=== PATIENT | female | born 1975 | race Caucasian/White ===

== ENCOUNTER 2021-06-19 14:12 | Emergency (ER) | payer BC, SELFPAY ==
[2021-06-19 14:28] VITALS: BP 155/98; PULSE 78; RESP 18; TEMP 36.8; O2SAT 99
--- NOTE | 2021-06-19 14:42 | ED.URI ---
HPI - URI/Sore Throat General Chief Complaint: Upper Respiratory Infection Stated Complaint: runny nose,cough,neck pain Time Seen by Provider: 06/19/21 14:46 Source: patient, RN notes reviewed and old records reviewed Mode of arrival: ambulatory Limitations: no limitations History of Present Illness HPI Narrative: 46 year old female presents to [facility] care with 2 week history of nasal drainage, cough, sore throat,swollen glands in her neck which has not resolved with use of fiorella seltzer cold med and Mucinex. Patient denies any fevers, chills or sweats, denies any body aches. Patient reports that she has had some sinus congestion and drainage, cough,sore throat and also some swollen glands in her neck. Patient reports that she has taken a home COVID test which was negative. Patient denies any shortness of breath or any wheezing. MD elicited complaint: cough, sore throat, rhinorrhea and nasal congestion Pertinent past history: seasonal allergies Onset (ago): week(s) (2) Consistency: constant Related Data Home Medications Medication Instructions Recorded Confirmed levonorgestrel-ethinyl estrad 1 tablet PO DAILY 06/19/21 06/19/21 [Lutera (28)] Allergies Allergy/AdvReac Type Severity Reaction Status Date / Time codeine Allergy Unknown Dizziness Verified 06/19/21 14:37 Review of Systems Review of Systems: CONSTITUTIONAL: Denies fever, chills, or sweats. EYES: Denies visual changes, redness, or discharge. ENT: Positive rhinorrhea, congestion, sore throat, no otalgia. CARDIOVASCULAR: Denies chest pain, palpitations, or edema. RESPIRATORY: Positive cough denies dyspnea. GASTROINTESTINAL: Denies abdominal pain, nausea, vomiting, or diarrhea. GENITOURINARY: Denies dysuria or hematuria. SKIN: Denies rash or itching. MUSCULOSKELETAL: Denies back pain, joint pain, or myalgia. NEUROLOGIC: Denies headache, numbness, or weakness. PSYCHIATRIC: Denies anxiety or depression. All systems reviewed & are unremarkable except as noted in HPI and below PMFSH Past Medical History Medical History (Updated 06/19/21 @ 15:42 by Roberta Sharp NP) Multiple sclerosis Seasonal allergies Surgical History Surgical History (Updated 06/19/21 @ 14:50 by Roberta Sharp NP) [place] teeth extracted Family History Family History Father Patient's father is in good health Sibling Patient's brother is in good health Mother Hypertension Family history of type 2 diabetes mellitus Social History Social History Smoking status: Never smoker Alcohol intake: current Exam Narrative: GENERAL: Well-appearing, well-nourished, and in no acute distress. HEAD: Normocephalic, atraumatic. EYES: PERRLA and EOMI. ENT: Nares with mild redness, clear rhinorrhea no epistaxis. Mucous membranes moist.TM's normal with good light reflex, throat with some redness no lesions or exudates or tonsil swelling, NECK: Supple. no lymphadenopathy noted CHEST: Clear to auscultation. No respiratory distress.SAO2 99% on room air HEART: Regular rate and rhythm. No murmur heard. Normal peripheral pulses. ABDOMEN: Soft, nontender, nondistended, normal active bowel sounds. EXTREMITIES: Normal range of motion. No edema. SKIN: Warm, dry, no rash. NEURO: No focal deficits. Alert and oriented x3. Course Course Level of Care: Express Care Visit Vital Signs Vital signs: Vital Signs Temperature 36.8 C 06/19/21 14:28 Pulse Rate 78 06/19/21 14:28 Respiratory Rate 18 06/19/21 14:28 Blood Pressure 155/98 H 06/19/21 14:28 Pulse Oximetry 99 06/19/21 14:28 Temperature 36.8 C 06/19/21 14:28 Pulse Rate 78 06/19/21 14:28 Respiratory Rate 18 06/19/21 14:28 Blood Pressure 155/98 H 06/19/21 14:28 Pulse Oximetry 99 06/19/21 14:28 MDM - URI/Sore Throat Differential Diagnosis Differential diagnosis: Likely upper respiratory infecti
--- NOTE | 2021-06-19 14:46 | ED.URI ---
HPI - URI/Sore Throat General Chief Complaint: Upper Respiratory Infection Stated Complaint: runny nose,cough,neck pain Time Seen by Provider: 06/19/21 14:46 Source: patient, RN notes reviewed and old records reviewed Mode of arrival: ambulatory Limitations: no limitations History of Present Illness HPI Narrative: 46 year old female who presents to [facility] care with complaints Related Data Home Medications Medication Instructions Recorded Confirmed levonorgestrel-ethinyl estrad 1 tablet PO DAILY 06/19/21 06/19/21 [Lutera (28)] Allergies Allergy/AdvReac Type Severity Reaction Status Date / Time codeine Allergy Unknown Dizziness Verified 06/19/21 14:37 Review of Systems Review of Systems: CONSTITUTIONAL: Denies fever, chills, or sweats. EYES: Denies visual changes, redness, or discharge. ENT: Denies rhinorrhea, congestion, sore throat, or otalgia. CARDIOVASCULAR: Denies chest pain, palpitations, or edema. RESPIRATORY: Denies cough or dyspnea. GASTROINTESTINAL: Denies abdominal pain, nausea, vomiting, or diarrhea. GENITOURINARY: Denies dysuria or hematuria. SKIN: Denies rash or itching. MUSCULOSKELETAL: Denies back pain, joint pain, or myalgia. NEUROLOGIC: Denies headache, numbness, or weakness. PSYCHIATRIC: Denies anxiety or depression. All systems reviewed & are unremarkable except as noted in HPI and below PMFSH Past Medical History Medical History (Updated 06/19/21 @ 14:51 by Roberta Sharp NP) Multiple sclerosis Surgical History Surgical History (Updated 06/19/21 @ 14:50 by Roberta Sharp NP) [place] teeth extracted Family History Family History Father Patient's father is in good health Sibling Patient's brother is in good health Mother Hypertension Family history of type 2 diabetes mellitus Social History Social History Smoking status: Never smoker Alcohol intake: current Comments At time of signature, agree with nursing past medical, surgical, social and family history. There is no relevant family history pertinent to the presenting complaint Exam Narrative: GENERAL: Well-appearing, well-nourished, and in no acute distress. HEAD: Normocephalic, atraumatic. EYES: PERRLA and EOMI. ENT: Nares clear, no rhinorrhea or epistaxis. Mucous membranes moist. NECK: Supple. CHEST: Clear to auscultation. No respiratory distress. HEART: Regular rate and rhythm. No murmur heard. Normal peripheral pulses. ABDOMEN: Soft, nontender, nondistended, normal active bowel sounds. EXTREMITIES: Normal range of motion. No edema. SKIN: Warm, dry, no rash. NEURO: No focal deficits. Alert and oriented x3. Course Course Level of Care: Express Care Visit Vital Signs Vital signs: Vital Signs Temperature 36.8 C 06/19/21 14:28 Pulse Rate 78 06/19/21 14:28 Respiratory Rate 18 06/19/21 14:28 Blood Pressure 155/98 H 06/19/21 14:28 Pulse Oximetry 99 06/19/21 14:28 Temperature 36.8 C 06/19/21 14:28 Pulse Rate 78 06/19/21 14:28 Respiratory Rate 18 06/19/21 14:28 Blood Pressure 155/98 H 06/19/21 14:28 Pulse Oximetry 99 06/19/21 14:28 MDM - URI/Sore Throat Differential Diagnosis Differential diagnosis: Likely upper respiratory infection Medical Records Attestation: I reviewed the patient's medical records. Lab Data Attestation: I reviewed the patient's lab results. Critical Care Time Critical Care Time Critical Care Time: No Discharge Plan Discharge Patient Disposition: Home, Self-Care Condition: Stable Instructions: Antibiotic Form Prescriptions: No Action levonorgestrel-ethinyl estrad [Lutera (28)] 0.1-20 mg-mcg tablet 1 tablet PO DAILY RF: 0 Follow-up/Referrals: Tonia Leach MD [Primary Care Provider] - [facility] [place] [facility] Eyes: Open Verbal: Oriented and Alert Motor: Follows Commands [place] [facility] [place]
== END 2021-06-19 15:23 | disposition home or self-care (01) ==
PROVIDERS: Emergency Provider Registered Nurse; PCP Family Medicine
DX: J06.9 Acute upper respiratory infection, unspecified (principal); R05.9 Cough, unspecified; G35 Multiple sclerosis
CPT/HCPCS: 87081; 87880; 99213; G0463

== ENCOUNTER 2023-12-10 02:32 | Day surgery (SDC) | payer BC, SELFPAY ==
[2023-11-20 15:44] VITALS: BMI 29.9
[2023-12-10 09:13] VITALS: BP 140/69; PULSE 60; RESP 16; TEMP 36.1; O2SAT 100; BMI 31.8
[2023-12-10 09:31] LABS: BEDSIDEPREGUCG Negative (Negative)
[2023-12-10] MEDS: LACTATED RINGERS 1,000 ML 150 ML IV CONT (09:36)
--- NOTE | 2023-12-10 09:44 | WPDANESEPPF ---
Anes - Initial Pre Proc Eval Procedure: Operation Date: 12/10/23 10:30 Proposed Procedures p Screening Colonoscopy - Godfrey Culver MD Date/Time: 12/10/23 09:44 Surgeon: Godfrey Culver MD Pre Op Diagnosis: neoplasm screening Patient Data Age: 48 Gender: F Height: 1.65 m Weight: 86.7 kg Last Vital Signs Temp 97.0 F L 12/10/23 09:13 Pulse 60 12/10/23 09:13 Resp 16 12/10/23 09:13 BP 140/69 12/10/23 09:13 Pulse Ox 100 12/10/23 09:13 O2 Del Method Room Air 12/10/23 09:13 Allergies Allergy/AdvReac Type Severity Reaction Status Date / Time codeine Allergy Unknown Dizziness Verified 12/10/23 09:22 Home Medications Medication Instructions Recorded Confirmed Type levonorgestrel-ethinyl estradiol See Rx Instructions .Route 10/20/23 12/10/23 Rx 0.1 mg-20 mcg tablet (Vienva) .COMPLEX #84 tabs metoprolol tartrate 25 mg tablet See Rx Instructions .Route 11/10/23 12/10/23 Rx .COMPLEX #180 tabs Laboratory Tests 12/10/23 09:13 POC Urine HCG, Qual Negative (Negative) Patient hx anesthesia problems: none Family hx anesthesia problems: none Results Review: All pre-operative results and documents have been reviewed as part of the pre-operative evaluation. [facility] Past Medical History Medical History Cholecystitis Multiple sclerosis Seasonal allergies Surgical History Surgical History History of cholecystectomy [place] teeth extracted Family History Family History Father Patient's father is in good health Sibling Patient's brother is in good health Mother Hypertension Family history of type 2 diabetes mellitus Social History Social History Social History: Smoking status: Never smoker Second hand tobacco smoke exposure: No Alcohol intake: current Drinks per week: 2 Alcohol use details: Occasionally Substance use: never Substance use type: does not use Lack of Transportation: No Lack of Food: Never True Current Housing: I Have Housing Concerned About Future Housing: No Difficulty Paying Gas/Electric Bills: No Difficulty Paying for Meds: No Currently Unemployed: No Education: Decline to Answer Difficulty w/ Childcare or Family Care: No Living arrangements: with family Occupation/Education: occupation Gender identity (if verbalized by the patient): Female Sexual Orientation (if Verbalized by the Patient): Straight or Heterosexual Spiritual care concerns: No Anes - Eval Final PreProcedure Day of Procedure 12/10/23 09:44 Patient weight: obese Heart: regular rate and rhythm Lungs: clear to auscultation Airway: Mallampati scale class II Neurological: alert and oriented Last oral intake: >/= 8 hours ASA classification: III Emergent: no Anesthetic plan: proceed Anesthesia type and monitoring: general GIVS and standard monitoring Results Review: All pre-operative results and documents have been reviewed as part of the pre-operative evaluation. Informed Consent: The patient's anesthetic plan and its attendant risks and benefits were discussed with the patient/family/POA. Questions were solicited and answers provided to the satisfaction of the patient/family/POA.
--- NOTE | 2023-12-10 09:57 | PM.HPGS ---
History of Present Illness History of Present Illness Consent: Risks, benefits, and alternatives have been discussed and questions answered. Patient agrees to proceed with procedure. Chief complaint: neoplasm screening Narrative: Stacy Godfrey is a 48 year old female here for first screening colonoscopy Review of Systems Review of Systems: All systems reviewed & are unremarkable except as noted in HPI and below PMFSH Past Medical History Medical History (Updated 12/10/23 @ 09:57 by Godfrey Culver MD) Cholecystitis Colon cancer screening Multiple sclerosis Seasonal allergies Surgical History Surgical History History of cholecystectomy [place] teeth extracted Family History Family History Father Patient's father is in good health Sibling Patient's brother is in good health Mother Hypertension Family history of type 2 diabetes mellitus Social History Social History Social History: Smoking status: Never smoker Second hand tobacco smoke exposure: No Alcohol intake: current Drinks per week: 2 Alcohol use details: Occasionally Substance use: never Substance use type: does not use Lack of Transportation: No Lack of Food: Never True Current Housing: I Have Housing Concerned About Future Housing: No Difficulty Paying Gas/Electric Bills: No Difficulty Paying for Meds: No Currently Unemployed: No Education: Decline to Answer Difficulty w/ Childcare or Family Care: No Living arrangements: with family Occupation/Education: occupation Gender identity (if verbalized by the patient): Female Sexual Orientation (if Verbalized by the Patient): Straight or Heterosexual Spiritual care concerns: No Meds Home Medications and Allergies Home Medications Medication Instructions Recorded Confirmed Type levonorgestrel-ethinyl estradiol See Rx Instructions .Route 10/20/23 12/10/23 Rx 0.1 mg-20 mcg tablet (Vienva) .COMPLEX #84 tabs metoprolol tartrate 25 mg tablet See Rx Instructions .Route 11/10/23 12/10/23 Rx .COMPLEX #180 tabs Allergies Allergy/AdvReac Type Severity Reaction Status Date / Time codeine Allergy Unknown Dizziness Verified 12/10/23 09:22 Vital Signs Vital Signs - 24 hr 12/10/23 09:13 Temperature 97.0 F L Pulse Rate 60 Respiratory Rate 16 Blood Pressure 140/69 Pulse Oximetry 100 Oxygen Delivery Room Air Exam Const: General: comfortable and no acute distress HENMT: Face/Nose/Sinus: Normal nares present Eyes: General: appearance normal, both eyes and all related structures Neck: Neck: no JVD Resp: Auscultation: clear to auscultation bilaterally Cardio: Rate: regular rate Rhythm: regular rhythm GI: Inspection: non-distended GI Palp: Yes Soft to palpation Skin: General skin exam: normal color Neuro: General: gait normal Speech: normal speech Extrem: General: normal to inspection Psych: Mental Status: mental status grossly normal Assessment and Plan Assessment and plan (1) Colon cancer screening: Code(s): Z12.11 - Encounter for screening for malignant neoplasm of colon Status: Acute Assessment and Plan: colonoscopy
[2023-12-10 10:21] VITALS: BP 112/73; PULSE 58; RESP 20; O2SAT 100
[2023-12-10 10:31] VITALS: BP 127/69; PULSE 51; RESP 16; O2SAT 100
[2023-12-10 10:41] VITALS: BP 114/75; PULSE 51; RESP 18; O2SAT 100
== END 2023-12-10 10:52 | disposition home or self-care (01) ==
PROVIDERS: Anesthesiology; PCP Family Medicine; Referring Provider Physician Assistant; Visit Provider Internal Medicine Gastroenterology
PROC: 0DJD8ZZ Inspection of Lower Intestinal Tract, Via Natural or Artificial Opening Endoscopic (ICD-10-PCS; CPT 45378; principal; 2023-12-10 10:30)
DX: Z12.11 Encounter for screening for malignant neoplasm of colon (principal); D12.5 Benign neoplasm of sigmoid colon; K64.8 Other hemorrhoids; G35 Multiple sclerosis; E66.9 Obesity, unspecified; Z68.31 Body mass index [BMI] 31.0-31.9, adult; Z98.890 Other specified postprocedural states; Z90.49 Acquired absence of other specified parts of digestive tract
CPT/HCPCS: 45385; 88305; J2003; J2704; J7120

== ENCOUNTER 2024-01-23 23:28 | Emergency (ER) | payer BC, SELFPAY ==
[2024-01-23 23:35] VITALS: BP 155/81; PULSE 81; RESP 20; TEMP 36.8; O2SAT 100
--- NOTE | 2024-01-23 23:51 | ED_ITS ---
HPI - Extremity Injury (Lower) General Chief Complaint: Extremity Injury, Lower Stated Complaint: muscles spasms left leg Time Seen by Provider: 01/23/24 23:32 Source: patient Mode of arrival: ambulatory Limitations: no limitations History of Present Illness HPI Narrative: Patient is a 48-year-old female who presents the ED with report of left hip and leg pain/spasms. Patient reports she has been dealing with this pain since November. She has seen her PCP for this and has been going to physical therapy recently. Pain is thought to be related to piriformis syndrome. States over the past couple days, she has been having increased pain. Denies injury. Is able to ambulate, but has trouble finding a comfortable position. Took Advil today without improvement. Reports intermittent numbness down lateral edge of thigh, denies current numbness. Denies saddle anesthesia. Denies bowel or bladder incontinence. Related Data Allergies Allergy/AdvReac Type Severity Reaction Status Date / Time codeine Allergy Unknown Dizziness Verified 12/11/23 08:12 Review of Systems Review of Systems: All systems reviewed & are unremarkable except as noted in HPI. All systems reviewed & are unremarkable except as noted in HPI and below PMFSH Past Medical History Medical History Acute bronchitis due to other specified organisms Acute non-recurrent maxillary sinusitis Cholecystitis Colon cancer screening Hx of gestational diabetes mellitus, not currently Multiple sclerosis Multiple sclerosis Seasonal allergies Surgical History Surgical History History of cholecystectomy [place] teeth extracted Family History Family History Father Patient's father is in good health Sibling Patient's brother is in good health Mother Hypertension Family history of type 2 diabetes mellitus Social History Social History Social History: Smoking status: Never smoker Second hand tobacco smoke exposure: No Alcohol intake: current Drinks per week: 2 Alcohol use details: Occasionally Substance use: never Substance use type: does not use Do You Feel Safe in your Home?: Yes Lack of Transportation: No Lack of Food: Never True Current Housing: I Have Housing Concerned About Future Housing: No Difficulty Paying Gas/Electric Bills: No Difficulty Paying for Meds: No Currently Unemployed: No Education: Decline to Answer Difficulty w/ Childcare or Family Care: No Living arrangements: with family Occupation/Education: occupation Gender identity (if verbalized by the patient): Female Sexual Orientation (if Verbalized by the Patient): Straight or Heterosexual Spiritual care concerns: No Exam Narrative: GENERAL: Well appearing, obese with BMI of 36.3, non-toxic, in mild acute distress d/t pain. HEAD: Normocephalic, atraumatic. RESPIRATORY: Airway patent, respirations nonlabored. CARDIOVASCULAR: Regular rate and rhythm MUSCULOSKELETAL: Moves all extremities. No gross deformities. Mild TTP over L lateral hip joint space. No significant tenderness in lumbar region. No midline spinal tenderness. Sensation intact. SKIN: Warm, dry, normal color. NEURO: A&O X3. Speech clear. Cranial nerves II-XII grossly intact. No ataxic movements. PSYCHIATRIC: Appropriate mood and affect. Normal interaction. Course Vital Signs Vital signs: Vital Signs Temperature 98.2 F 01/23/24 23:35 Pulse Rate 81 01/23/24 23:35 Respiratory Rate 20 01/23/24 23:35 Blood Pressure 155/81 H 01/23/24 23:35 Pulse Oximetry 100 01/23/24 23:35 Temperature 98.2 F 01/23/24 23:35 Pulse Rate 81 01/23/24 23:35 Respiratory Rate 20 01/23/24 23:35 Blood Pressure 155/81 H 01/23/24 23:35 Pulse Oximetry 100 01/23/24 23:35 MDM - Extremity Injury (Lower) MDM Narrative Medical decision making narrative: Patient presented to ED with several month history of left-sided hip and leg pain. Currently undergoing evaluation for piriformis syndrome/sciatica. Currently in physical therapy. Patient is ambulatory, able to bear weight on the left leg. She denies any new fall or injury. Do not feel imaging is required at this time. Patient?s pain is positional and localized to paraspinal muscles without signs of cord compression or cauda equina. Normal neurologic exams. No red flag symptoms. No symptoms or signs to suggest pain is referred from abdominal or source. Patient given several pain modalities in the ED. She is feeling improved with supportive therapy. Feel she is safe for discharge home with close outpatient follow-up. Will prescribe lidocaine patches, short steroid pack, muscle relaxers for home use. Recommended that patient contact primary care doctor's office on Friday for follow-up appointment. Given strict return precautions should symptoms change or worsen or be associated with further neurologic issues. Patient in agreement with plan. Feels comfortable discharge home. Discharged in stable condition. Medical Records Attestation: I reviewed the patient's medical records. Discharge Plan Discharge Clinical Impression: Strain of left hip and thigh Qualifiers: Encounter type: initial encounter Qualified Code(s): S76.012A - Strain of muscle, fascia and tendon of left hip, initial encounter Patient Disposition: Home, Self-Care Condition: Stable Instructions: Antibiotic Form, Sciatica (ED), Muscle Spasm (ED), Piriformis Syndrome (ED) Additional Instructions: Take steroid pack as prescribed over the next several days. Continue Tylenol and Ibuprofen as needed for pain. You may use ice/heat, lidocaine patches to area of pain. Take muscle relaxers as needed and prescribed. Recommend taking these at night as they may cause sedation. Do not drive, operate heavy machinery, drink alcohol while on muscle relaxers as this may cause further sedation. Follow-up with your primary care doctor for further evaluation. Return to the ED if you experience worsening or severe pain, recurrent injury, persistent numbness in groin or legs, going to the bathroom without meaning to, unable to keep down food or drink, or any other symptoms of concern. Prescriptions: New methocarbamol 750 mg tablet 1,500 mg PO TID PRN (Reason: muscle spasm) Qty: 15 0RF lidocaine 5 % adhesive patch,medicated 1 patch topical DAILY Qty: 15 0RF Rx Instructions: leave on most painful area for up to 12 hrs methylprednisolone [Medrol (Miguel)] 4 mg tablets,dose pack See Rx Instructions PO .COMPLEX Qty: 21 0RF Rx Instructions: orally per package directions No Action metoprolol tartrate 25 mg tablet See Rx Instructions .ROUTE .COMPLEX Qty: 180 0RF Dose Instruction: TAKE 1 TABLET BY MOUTH TWICE DAILY Rx Instructions: TAKE 1 TABLET BY MOUTH TWICE DAILY levonorgestrel-ethinyl estrad [Vienva] 0.1-20 mg-mcg tablet See Rx Instructions .ROUTE .COMPLEX Qty: 84 3RF Dose Instruction: TAKE 1 TABLET BY MOUTH DAILY Rx Instructions: TAKE 1 TABLET BY MOUTH DAILY Follow-up/Referrals: Tonia Leach MD [Primary Care Provider] - Time of Disposition: 01:20
[2024-01-24] MEDS: KETOROLAC 15 MG/ML VIAL (*BKC) IV PUSH (00:09)
[2024-01-24] MEDS: methylPREDNISolone SOD SUCC 125 MG VIAL IV PUSH (00:09)
[2024-01-24] MEDS: diazePAM INJ (*CRX) 10 MG/2 ML SYRINGE 2 MG IV PUSH (00:10)
[2024-01-24] MEDS: HYDROcodone/acetaminophen (*CRX) 5-325 MG TABLET 1 TAB PO (00:10)
[2024-01-24] MEDS: methocarbamoL 500 MG TABLET 1000 MG PO (01:26)
== END 2024-01-24 01:36 | disposition home or self-care (01) ==
PROVIDERS: Emergency Provider Physician Assistant; PCP Family Medicine
DX: S76.012A Strain of muscle, fascia and tendon of left hip, initial encounter (principal); G35 Multiple sclerosis; Z90.49 Acquired absence of other specified parts of digestive tract; X58.XXXA Exposure to other specified factors, initial encounter
CPT/HCPCS: 96374; 96375; 99284; A9270; J1885; J2919; J3360

== ENCOUNTER 2024-02-24 08:30 | Outpatient (RCR) | payer BC, SELFPAY ==
--- NOTE | 2024-01-08 18:20 | PTOPEVAL1 ---
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 Last August 2023, she did a lot of walking around the campus on uneven grounds and did a mud run which was more for fun versus competition, it was held in the middle of the 2 weeks summer camp. Then she started feeling discomfort to L hip that would come and go at first. However it persisted and occurred more frequently, and gradually worsened. By November, She decided to see MD and received a cortisone shot for a possible Trochanteric Bursitis. She did not feel any relief from the injection and in the last week, she feels that her LLE is numb, occasional tingling sensation after standing or walking for prolonged period of time, occasional achiness to calf muscles. Standing is also aggravating pain. Difficulty with picking up objects from the floor, getting up of bed, finding comfortable position for sleep, stairs is tolerable. Wears tennis shoes for work for increased support. Reported Pain Level Pain Score 8: Self Report Assessment PT Clinical Summary Pt is a 48 yo female who presents to therapy with worsening L hip pain. Demos decreased ROM with L hip abd, ER and extension being significantly affected, weakness to BLEs L > R which is influenced greatly by pain during MMT, nerve symptoms such as tingling sensation and numbness which results to decreased standing and walking tolerance. She will benefit from skilled PT to manage pain, improve mobility, improve strength to allow pt to perform IADLs and daily ambulation without pain and discomfort. Plan of Care Interventions Electrical Stimulation,Gait Training,Hot Pack/Cold Pack,Manual Therapy,Patient/Caregiver Education, Therapeutic Activities,Therapeutic Exercise, Ultrasound Other Interventions IASTM, Taping PT Services Indicated Yes Treatment Frequency and 2x/wk x 12 visits Duration These treatments will address the objective and functional deficits as defined above. The patient will be advanced safely and appropriately in order for the patient to progress towards his/her prior level of function. Additional exercises will be introduced and as well as a comprehensive home exercise program upon discharge, if needed, ?to ensure carryover of functional gains achieved in the clinic. This treatment plan has been reviewed and agreement upon by the patient.
--- NOTE | 2024-02-17 10:09 | PCPTNOTE ---
Pt did not show up on her 8:30 appointment today and did not answer call. Reason for no-show unknown.
== END 2024-03-24 09:22 | disposition home or self-care (01) ==
LOC: ANHHIPT 08:30
PROVIDERS: PCP Family Medicine; Visit Provider Physician Assistant
DX: M25.552 Pain in left hip (principal)
CPT/HCPCS: 97014; 97035; 97110; 97112; 97140; 97161; G0283

== ENCOUNTER 2024-03-12 10:20 | Outpatient (CLI) | payer BC, SELFPAY ==
--- NOTE | ~2024-03-12 | CT_ITS ---
EXAMINATION: CT inject muscle 1-2 w imaging DATE: 03/12/2024 11:09 INDICATION: Left piriformis muscle pain. Left-sided sciatica. TECHNIQUE: The procedure including the risks, benefits, and alternatives was discussed with the patie nt. Risks discussed included bleeding and infection. The patient verbalized understanding of the risk s and agreed to proceed. The skin overlying the left buttock was prepped and draped in usual sterile fashion. Anesthetic was administered with 1% lidocaine subcutaneously. A 22-gauge needle was insert ed into the left piriformis muscle under CT guidance. 2 mL 0.5% bupivacaine and 1 mL 80 mg/mL Depo-Me drol was injected. The dose-length product was 87.91 mGy-cm. The needle was removed and the entry sit e was cleaned and dressed. There were no immediate complications. FINDINGS: CT images demonstrate the needle in the left piriformis muscle. IMPRESSION: 1. CT-guided left piriformis muscle injection. Reviewed, dictated and finalized at location A. [employer]
== END 2024-03-12 10:21 | disposition home or self-care (01) ==
LOC: ANHIMG 10:24
PROVIDERS: PCP Family Medicine; Visit Provider Nurse Practitioner Family
DX: G57.02 Lesion of sciatic nerve, left lower limb (principal)
CPT/HCPCS: 20552; 77012; J1010

== ENCOUNTER 2024-05-10 09:18 | Outpatient (CLI) | payer BC, SELFPAY ==
--- NOTE | ~2024-05-10 | MR_ITS ---
MRI of the lumbar spine Clinical History: Radiculopathy Technique: Axial T2-weighted images, and sagittal T1-weighted, T2-weighted, and T2 fat-sat images wer e acquired. Findings: There is no fracture or sublocation of the lumbar spine. Vertebral bodies maintain normal h eight and alignment. No suspicious bone marrow signal abnormality seen. At L1-L2 and L2-L3, there is no disc bulge or herniation. Intervertebral discs maintain normal signal and position. There is moderate facet joint degenerative change at these levels. No spinal canal tamera nosis or neural foraminal narrowing at these levels. At L3-L4, there is minimal degenerative disc narrowing without disc bulge or herniation. There is mil d facet joint hypertrophy. No spinal canal stenosis or neural foraminal narrowing. At L4-L5, there is advanced degenerative disc narrowing. There is central disc protrusion with modera te facet arthropathy. There is mild central canal stenosis. Neural foramina are preserved. Tiny annul ar fissure present. At L5-S1, there is moderate degenerative disc narrowing with disc bulge and tiny annular fissure. The re is moderate facet arthropathy. There is mild central canal stenosis. Neural foramina are preserved . Paravertebral soft tissues are unremarkable. Impression: Moderate degenerative spondylitic changes, predominantly at L4-L5 and L5-S1, as detailed above. Reviewed, dictated and finalized at [facility]. Impression: Moderate degenerative spondylitic changes, predominantly at L4-L5 and L5-S1, as detailed above.
--- NOTE | ~2024-05-10 | MR_ITS ---
MRI of the pelvis Clinical history: Left hip pain Technique: Coronal T1-weighted, T2-weighted, and proton-density fat-sat images, and axial T1-weighted and proton-density fat-sat images were acquired through the pelvis. Findings: There is no fracture or avascular necrosis of either hip. Bone marrow signals in the proxim al femora and pelvic bones are unremarkable. Bilateral hip joint spaces are intact. Articular cartila ge in the joint is relatively well-preserved. No joint effusion at either hip seen. No definite aceta bular labral tear evident. Visualized musculature about the pelvis is unremarkable. No muscle atrophy or edema seen. Visualized tendons are intact. No soft tissue mass or fluid collection seen. IMPRESSION: No significant abnormality identified. Reviewed, dictated and finalized at [facility].
== END 2024-05-10 09:19 | disposition home or self-care (01) ==
LOC: MICIMG 09:19
PROVIDERS: PCP Family Medicine; Visit Provider Nurse Practitioner Family
DX: M25.552 Pain in left hip (principal); M53.3 Sacrococcygeal disorders, not elsewhere classified; M47.26 Other spondylosis with radiculopathy, lumbar region
CPT/HCPCS: 72148; 72195